=== PATIENT | female | born 1965 | race Caucasian/White ===

== ENCOUNTER 2019-12-11 16:33 | Observation (INO) | payer BC ==
--- NOTE | 2019-12-11 17:42 | ER ---
Nurse's Notes [facility] Name: Sharon Durant Age: 54 yrs Sex: Female : 1965 Arrival Date: 12/11/2019 Time: 16:40 Bed 2 Private MD: Eb Novak H Diagnosis: Palpitations;Essential (primary) hypertension;Chest pain, unspecified;Hypokalemia Presentation: 12/10 16:42 Chief complaint: Patient states: heart fluttering started at 1500, lightheaded, chest sv pressure, heartburn. 16:42 Method Of Arrival: Ambulatory sv 16:45 Coronavirus screen: Proceed with normal triage. Patient denies a cough. Patient denies sv shortness of breath or difficulty breathing. Patient denies measured and/or subjective temperature greater than 100.4F prior to today's visit. Patient denies travel on a cruise ship or to a country the [facility] currently lists as an affected area. Patient denies contact with known and/or suspected case of COVID-19. Ebola Screen: No symptoms or risks identified at this time. Initial Sepsis Screen: Does the patient meet any 2 criteria? HR > 90 bpm. No. Patient's initial sepsis screen is negative. Does the patient have a suspected source of infection? No. Patient's initial sepsis screen is negative. Risk Assessment: Do you want to hurt yourself or someone else? Patient reports no desire to harm self or others. Onset of symptoms was December 11, 2019. 16:45 Acuity: GABBY 2 sv Triage Assessment: 17:00 General: Appears in no apparent distress. comfortable, obese, Behavior is cooperative, bp appropriate for age, anxious. Pain: Complains of pain in mid-sternal area. EENT: No deficits noted. Neuro: No deficits noted. Cardiovascular: Rhythm is sinus rhythm. Respiratory: No deficits noted. GI: No signs and/or symptoms were reported involving the gastrointestinal system. : No signs and/or symptoms were reported regarding the genitourinary system. Derm: No deficits noted. Musculoskeletal: No deficits noted. PER DIEM RN: 17:01 LMP N/A - Hysterectomy ca1 Historical: - Allergies: 16:43 No Known Allergies; sv - PMHx: 16:43 Hypertension; High Cholesterol; sv 16:44 Atrial Fib; sv - PSHx: 16:43 Hysterectomy; Ear cyst removal; ; sv - Immunization history:: Adult Immunizations up to date. - Social history:: Smoking status: Patient denies any tobacco usage or history of. - Family history:: not pertinent. Screenin:58 Abuse screen: Denies threats or abuse. Denies injuries from another. Nutritional ca1 screening: No deficits noted. Tuberculosis screening: No symptoms or risk factors identified. Fall Risk IV access (20 points). Assessment: 16:58 General: Appears in no apparent distress. comfortable, Behavior is calm, cooperative, ca1 appropriate for age. Pain: Complains of pain in mid-sternal area Pain does not radiate. Pain currently is 0 out of 10 on a pain scale. Quality of pain is described as heavy, pressure, Pain began 2 hours ago. Is intermittent, Also complains of nausea, shortness of breath, lightheaded. Neuro: Level of Consciousness is awake, alert, obeys commands, Oriented to person, place, time, situation, Appropriate for age. Cardiovascular: Heart tones S1 S2 present Capillary refill < 3 seconds Patient's skin is warm and dry. Rhythm is sinus rhythm. Respiratory: Airway is patent Respiratory effort is even, unlabored, Respiratory pattern is regular, symmetrical, Breath sounds are clear bilaterally. GI: Abdomen is round non-distended, Bowel sounds present X 4 quads. Abd is soft and non tender X 4 quads. : No signs and/or symptoms were reported regarding the genitourinary system. EENT: No signs and/or symptoms were reported regarding the EENT system. Derm: Skin is intact, is healthy with good turgor, Skin is pink, warm \T\ dry. Musculoskeletal: Circulation, motion, and sensation intact. Capillary refill < 3 seconds. 17:55 Reassessment: Patient appears in no apparent distress at this time. Patient and/or ca1 family updated on plan of care and expected duration. Pain level reassessed. Patient is alert, oriented x 3, equal unlabored respirations, skin warm/dry/pink. 19:19 General: Appears in no apparent distress. Behavior is calm, cooperative, appropriate ea for age. Pain: Denies pain. Neuro: Level of Consciousness is awake, alert, obeys commands, Oriented to person, place, time, situation. Respiratory: Airway is patent Respiratory effort is even, unlabored, Respiratory pattern is regular, symmetrical. Derm: Skin is pink, warm \T\ dry. 20:55 Reassessment: Patient and/or family updated on plan of care and expected duration. Pain ea level reassessed. Patient is alert, oriented x 3, equal unlabored respirations, skin warm/dry/pink. 21:11 Reassessment: Patient and/or family updated on plan of care and expected duration. Pain ea level reassessed. Patient is alert, oriented x 3, equal unlabored respirations, skin warm/dry/pink. Report called to Adwoa MEYER. Vital Signs: 16:45 BP 115 / 91; Pulse 101; Resp 18; Temp 98.4; Pulse Ox 97% ; Weight 108.86 kg; Height 5 sv ft. 7 in. (170.18 cm); 17:00 BP 140 / 94; Pulse 77; Resp 16 S; Pulse Ox 97% on R/A; ca1 17:45 BP 123 / 81; Pulse 73; Resp 16 S; Pulse Ox 97% on R/A; ca1 18:35 BP 116 / 86; Pulse 65; Resp 17 S; Pulse Ox 97% on R/A; ca1 20:00 BP 123 / 76; Pulse 69; Resp 18; Pulse Ox 97% on R/A; ea 21:12 BP 146 / 85; Pulse 64; Resp 18; Pulse Ox 99% on R/A; ea 16:45 Body Mass Index 37.59 (108.86 kg, 170.18 cm) sv ED Course: 16:40 Patient arrived in ED. am2 16:41 Eb Novak MD is Private Physician. am2 16:42 Arm band placed on. sv 16:46 Triage completed. sv 16:49 Erica Roca, MITCH is Primary Nurse. ca1 16:54 Chriss Villanueva MD is Attending Physician. imani 16:58 Patient has correct armband on for positive identification. Placed in gown. Bed in low ca1 position. Call light in reach. Side rails up X 1. library monitor on. Pulse ox on. NIBP on. Warm blanket given. 16:58 Patient maintains SpO2 saturation greater than 95% on room air. ca1 17:11 No provider procedures requiring assistance completed. Initial lab(s) drawn, by nj, ca1 sent to lab. Inserted saline lock: 20 gauge in right antecubital area, using aseptic technique. Blood collected. 17:36 XRAY Chest (1 view) In Process Unspecified. EDMS 17:39 Abner Panchal DO is Hospitalizing Provider. imani 19:35 Patient admitted, IV remains in place. ea Administered Medications: 17:40 Drug: Pepcid 20 mg Route: IVP; Site: right antecubital; bp 17:45 Follow up: Response: No adverse reaction bp 17:40 Drug: Lovenox 100 mg Route: Sub-Q; Site: right lower abdomen; bp 17:45 Follow up: Response: No adverse reaction bp 19:48 Drug: Potassium Effervescent Tablet 25 mEq Route: PO; ea 21:13 Follow up: Response: No adverse reaction ea Outcome: 17:39 Decision to Hospitalize by Provider. imani 19:34 Instructed on the need for admit, Demonstrated understanding of instructions. ea 21:11 Admitted to Med/surg accompanied by tech, room 219, with chart, Report called to leonardo Orona RN 21:11 Condition: stable 21:13 Patient left the ED. ea Signatures: Dispatcher [employer] EDCassia Roa RN Chriss Corona MD MD cha Moreno, Amanda am2 Katerin Gillis RN RN Rian Perdomo RN RN bp Erica Roca RN RN ca1 Corrections: (The following items were deleted from the chart) 16:46 16:45 Acuity: GABBY 3 sv sv
--- NOTE | 2019-12-11 17:42 | EDPHYS ---
Physician Documentation [facility] Name: Sharon Durant Age: 54 yrs Sex: Female : 1965 Arrival Date: 12/11/2019 Time: 16:40 Bed 2 Private MD: Eb Novak H ED Physician Chriss Villanueva HPI: 12/10 17:35 This 54 yrs old Female presents to ER via Ambulatory with complaints of imani Palpitations, Chest Pressure. 17:35 The patient presents with a history of irregular heart beat, heart skipping beats. imani Context: The symptoms occur at rest. Onset: The symptoms/episode began/occurred just prior to arrival, today. 17:35 The patient or guardian reports chest pain that is located primarily in the substernal imani area. Onset: just prior to arrival, today. Modifying factors: The symptoms are aggravated by nothing. The symptoms are alleviated by nothing. The pain does not radiate. Associated signs and symptoms: Pertinent positives: chest pain, SOB. The chest pain is described as a pressure. 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 - Social history:: Smoking status: Patient denies any tobacco usage or history of. - Family history:: not pertinent. ROS: 17:35 Constitutional: Negative for fever, chills, and weight loss, Eyes: Negative for injury, imani pain, redness, and discharge, ENT: Negative for injury, pain, and discharge, Neck: Negative for injury, pain, and swelling, Respiratory: Negative for shortness of breath, cough, wheezing, and pleuritic chest pain, Abdomen/GI: Negative for abdominal pain, nausea, vomiting, diarrhea, and constipation, Back: Negative for injury and pain, : Negative for injury, bleeding, discharge, and swelling, MS/Extremity: Negative for injury and deformity, Skin: Negative for injury, rash, and discoloration, Neuro: Negative for headache, weakness, numbness, tingling, and seizure, Psych: Negative for depression, anxiety, suicide ideation, homicidal ideation, and hallucinations, Allergy/Immunology: Negative for hives, rash, and allergies, Endocrine: Negative for neck swelling, polydipsia, polyuria, polyphagia, and marked weight changes, Hematologic/Lymphatic: Negative for swollen nodes, abnormal bleeding, and unusual bruising. 17:35 Cardiovascular: Positive for chest pain. Exam: 17:35 Constitutional: This is a well developed, well nourished patient who is awake, alert, imani and in no acute distress. Head/Face: Normocephalic, atraumatic. Eyes: Pupils equal round and reactive to light, extra-ocular motions intact. Lids and lashes normal. Conjunctiva and sclera are non-icteric and not injected. Cornea within normal limits. Periorbital areas with no swelling, redness, or edema. ENT: Nares patent. No nasal discharge, no septal abnormalities noted. Tympanic membranes are normal and external auditory canals are clear. Oropharynx with no redness, swelling, or masses, exudates, or evidence of obstruction, uvula midline. Mucous membranes moist. Neck: Trachea midline, no thyromegaly or masses palpated, and no cervical lymphadenopathy. Supple, full range of motion without nuchal rigidity, or vertebral point tenderness. No Meningismus. Chest/axilla: Normal chest wall appearance and motion. Nontender with no deformity. No lesions are appreciated. Cardiovascular: Regular rate and rhythm with a normal S1 and S2. No gallops, murmurs, or rubs. Normal PMI, no JVD. No pulse deficits. Respiratory: Lungs have equal breath sounds bilaterally, clear to auscultation and percussion. No rales, rhonchi or wheezes noted. No increased work of breathing, no retractions or nasal flaring. Abdomen/GI: Soft, non-tender, with normal bowel sounds. No distension or tympany. No guarding or rebound. No evidence of tenderness throughout. Back: No spinal tenderness. No costovertebral tenderness. Full range of motion. Skin: Warm, dry with normal turgor. Normal color with no rashes, no lesions, and no evidence of cellulitis. MS/ Extremity: Pulses equal, no cyanosis. Neurovascular intact. Full, normal range of motion. Neuro: Awake and alert, GCS 15, oriented to person, place, time, and situation. Cranial nerves II-XII grossly intact. Motor strength 5/5 in all extremities. Sensory grossly intact. Cerebellar exam normal. Normal gait. Psych: Awake, alert, with orientation to person, place and time. Behavior, mood, and affect are within normal limits. 17:35 Musculoskeletal/extremity: DVT Exam: No signs of deep vein thrombosis. no pain, no swelling, no tenderness, negative Homans' sign noted on exam, no appreciated bluish discoloration, no erythema, no increased warmth. Vital Signs: 16:45 BP 115 / 91; Pulse 101; Resp 18; Temp 98.4; Pulse Ox 97% ; Weight 108.86 kg; Height 5 sv ft. 7 in. (170.18 cm); 17:00 BP 140 / 94; Pulse 77; Resp 16 S; Pulse Ox 97% on R/A; ca1 17:45 BP 123 / 81; Pulse 73; Resp 16 S; Pulse Ox 97% on R/A; ca1 18:35 BP 116 / 86; Pulse 65; Resp 17 S; Pulse Ox 97% on R/A; ca1 20:00 BP 123 / 76; Pulse 69; Resp 18; Pulse Ox 97% on R/A; ea 21:12 BP 146 / 85; Pulse 64; Resp 18; Pulse Ox 99% on R/A; ea 16:45 Body Mass Index 37.59 (108.86 kg, 170.18 cm) sv MDM: 16:54 Patient medically screened. imani 17:40 JOSE Risk Score: 1 - ASA use in past 7 days. HEART Score: History: Slightly Suspicious imani (0), ECG: Normal (0), Age: > 45 and < 65 years (1), Risk Factors: > or = 3 Risk factors for atherosclerotic disease (2), [Hypercholesterolemia] [Hypertension] [+ Family HX] [Obesity] Troponin: < or = 1 x Normal Limit (0). Data reviewed: vital signs, nurses notes, lab test result(s), EKG, radiologic studies, plain films. 18:02 Differential diagnosis: abnormal EKG, anxiety, coronary artery disease cholecystitis, imani Cholelithiasis costochondritis, arrythmia, dehydration, esophagitis, gastroesophageal reflux disease (GERD), hiatal hernia, pancreatitis, pleurisy, stable angina. The patient was not given aspirin in the Emergency Department. Patient reports taking aspirin within the past 24 hours. 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 18:03 The patient's pulmonary embolism risk score was calculated as follows: Total Score: 0-2 imani points. This patient was found to be at low risk for a pulmonary embolism by using the Well's assessment criteria. Counseling: I had a detailed discussion with the patient and/or guardian regarding: the historical points, exam findings, and any diagnostic results supporting the discharge/admit diagnosis, the presence of at least one elevated blood pressure reading (>120/80) during this emergency department visit, lab results, radiology results, the need for further work-up and treatment in the hospital. 12/10 17:11 Order name: Basic Metabolic Panel; Complete Time: 19:38 [facility] 12/10 17:11 Order name: CBC with Diff; Complete Time: 18:11 [facility] 12/10 17:11 Order name: LFT's; Complete Time: 19:38 [facility] 12/10 17:11 Order name: Magnesium; Complete Time: 19:38 [facility] 12/10 17:11 Order name: NT PRO-BNP; Complete Time: 19:38 [facility] 12/10 17:11 Order name: PT-INR; Complete Time: 18:11 [facility] 12/10 17:11 Order name: Troponin (emerg Dept Use Only); Complete Time: 19:38 [facility] 12/10 17:35 Order name: Lipase; Complete Time: 18:11 [facility] 12/10 17:38 Order name: TSH; Complete Time: 18:17 [facility] 12/10 19:56 Order name: Lipid Profile [facility] 12/10 19:56 Order name: Lipid Profile [facility] 12/10 19:56 Order name: Troponin I [facility] 12/10 19:56 Order name: Troponin I [facility] 12/10 19:56 Order name: Troponin I [facility] 12/10 17:11 Order name: XRAY Chest (1 view); Complete Time: 18:11 [facility] 12/10 17:11 Order name: EKG; Complete Time: 17:12 [facility] 12/10 17:11 Order name: Cardiac monitoring; Complete Time: 17:11 [facility] 12/10 17:11 Order name: EKG - Nurse/Tech; Complete Time: 17:11 [facility] 12/10 17:11 Order name: IV Saline Lock; Complete Time: 17:11 [facility] 12/10 17:11 Order name: Labs collected and sent; Complete Time: 17:11 ca1 12/10 17:11 Order name: O2 Per Protocol; Complete Time: 17:11 ca1 12/10 17:11 Order name: O2 Sat Monitoring; Complete Time: 17:11 ca1 12/10 19:56 Order name: Heart Healthy EDMS 12/10 19:56 Order name: Echo with Doppler EDMS Administered Medications: 17:40 Drug: Pepcid 20 mg Route: IVP; Site: right antecubital; bp 17:45 Follow up: Response: No adverse reaction bp 17:40 Drug: Lovenox 100 mg Route: Sub-Q; Site: right lower abdomen; bp 17:45 Follow up: Response: No adverse reaction bp 19:48 Drug: Potassium Effervescent Tablet 25 mEq Route: PO; ea 21:13 Follow up: Response: No adverse reaction ea Disposition: 12/11/19 17:39 Hospitalization ordered by Abner Panchal for Observation. Preliminary diagnosis are Palpitations, Essential (primary) hypertension, Chest pain, unspecified, Hypokalemia. - Bed requested for Telemetry/MedSurg (observation). - Status is Observation. ea - Condition is Stable. - Problem is new. - Symptoms have improved. Signatures: Dispatcher [employer] EDMS Cassia Douglas RN Fatoumata Pepe RN Chriss Cao MD MD cha Attema, Lee, DELI WORKER-C DELI WORKER-Cla1 Katerin Gillis RN RN ea Peltier, Brian RN Loree Fitch eb Erica Roca RN RN ca1 Corrections: (The following items were deleted from the chart) 18:18 17:39 Hospitalization Ordered by Abner Panchal DO for Observation. Preliminary eb diagnosis is Palpitations; Essential (primary) hypertension; Chest pain, unspecified. Bed requested for Telemetry/MedSurg (observation). Status is Observation. Condition is Stable. Problem is new. Symptoms have improved. imani 19:39 18:18 12/11/2019 17:39 Hospitalization Ordered by Abner Panchal DO for Observation. imani Preliminary diagnosis is Palpitations; Essential (primary) hypertension; Chest pain, unspecified. Bed requested for Telemetry/MedSurg (observation). Status is Observation. Condition is Stable. Problem is new. Symptoms have improved. eb 20:04 19:39 12/11/2019 17:39 Hospitalization Ordered by Abner Panchal DO for Observation. mw Preliminary diagnosis is Palpitations; Essential (primary) hypertension; Chest pain, unspecified; Hypokalemia. Bed requested for Telemetry/MedSurg (observation). Status is Observation. Condition is Stable. Problem is new. Symptoms have improved. imani 21:13 20:04 12/11/2019 17:39 Hospitalization Ordered by Abner Panchal DO for Observation. ea Preliminary diagnosis is Palpitations; Essential (primary) hypertension; Chest pain, unspecified; Hypokalemia. Bed requested for Telemetry/MedSurg (observation). Status is Observation. Condition is Stable. Problem is new. Symptoms have improved. mw
[2019-12-11] MEDS ORDERED: FAMOTIDINE 20 MG/2 ML VIAL IV ONE (17:45)
[2019-12-11] MEDS ORDERED: ENOXAPARIN 100 MG/ML SYR SQ ONE (17:45)
--- NOTE | 2019-12-11 17:48 | RAD REPORT ---
EXAM DESCRIPTION: [place] Single View12/11/2019 5:31 pm CLINICAL HISTORY: Chest pain COMPARISON: 2012 FINDINGS: The lungs appear clear of acute infiltrate. The heart is normal size IMPRESSION: No acute abnormalities displayed
[2019-12-11 17:58] LABS: Absolute Lymphocytes (CBC) 1.7 K/uL (0.7-4.9); Basophils % 0.7 % (0-1.3); Hematocrit 43.4 % (36.0-45.0); Lymphocytes % 28.5 % (15.3-44.8); MPV 9.2 fL (7.6-11.3)
[2019-12-11 17:59] LABS: Protime INR 0.96
[2019-12-11 18:18] LABS: ALT/SGPT 33 U/L (12-78); AST/SGOT 20 U/L (15-37); Alkaline Phosphatase 75 U/L (45-117); BUN Blood Urea Nitrogen 10 mg/dL (7-18); Bicarbonate 27 mmol/L (21-32); Bilirubin Direct < 0.1 mg/dL (0-0.2); Bilirubin Total 0.3 mg/dL (0.2-1.0); Glucose Level 142 mg/dL (74-106); Magnesium 2.1 mg/dL (1.8-2.4); NT PRO-BNP 180 pg/mL (<125); Potassium 3.4 mmol/L (3.5-5.1); Protein, Total 7.6 g/dL (6.4-8.2); Sodium Level 140 mmol/L (136-145); Troponin (Emerg Dept Use Only) < 0.02 ng/mL (0.0-0.045)
[2019-12-11] MEDS ORDERED: POTASSIUM 25 MEQ EFFERV TAB ONE (19:49)
[2019-12-11] MEDS ORDERED: ALPRAZOLAM 0.25 MG TABLET PO PRN (19:53)
[2019-12-11] MEDS ORDERED: ACETAMINOPHEN 500 MG TAB PO PRN (19:53)
[2019-12-11] MEDS ORDERED: MORPHINE 4 MG/ML SYR IV PRN (19:53)
[2019-12-11] MEDS ORDERED: METOPROLOL TAR 50 MG TAB PO SCH (21:00)
[2019-12-11 22:43] VITALS: BMI 38.7
[2019-12-12 06:32] VITALS: BP 116/71; TEMP 97.4
--- NOTE | 2019-12-12 08:24 | P.HP ---
Certification for Inpatient Patient admitted to: Observation With expected LOS: <2 Midnights Patient will require the following post-hospital care: None Practitioner: I am a practitioner with admitting privileges, knowledge of patient current condition, hospital course, and medical plan of care. Services: Services provided to patient in accordance with Admission requirements found in Title 42 Section 412.3 of the Code of Federal Regulations Patient History Date of Service: 12/11/19 Reason for admission: Chest pain rule out acute coronary syndrome History of Present Illness: Patient is a 54-year-old female who came to the hospital with chest pain. Patient history of atrial fibrillation. Patient's pain started yesterday. Patient has been following up with Cardiology in [place], with Dr. Timo Fox. Patient had workup done about a year and a half ago including echocardiogram and stress test. At that time patient stress test revealed no abnormalities. Patient will be followed up with Cardiology if workup is negative. At this time will do troponins and EKG. If these come back negative then patient can continue with outpatient follow-up. Allergies No Known Allergies Allergy (Verified 12/11/19 22:19) Home Medications: Aspirin 1 tab PO DAILY 12/11/19 Metoprolol Tartrate 1 tab PO SEECOM 12/11/19 Metoprolol Tartrate [Lopressor*] 1 tab PO BEDTIME 12/11/19 Simvastatin 20 mg PO BEDTIME 12/11/19 hydroCHLOROthiazide [Hydrochlorothiazide] 1 tab PO DAILY 12/11/19 - Past Medical/Surgical History Has patient received pneumonia vaccine in the past: No Diabetic: No -: HTN -: Osteoarthritis/Bursitis of the Hip and Shoulder -: Obesity -: Migraines -: Partial Hysterectomy -: Cyst to the auricular area removed. 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 - Family History Father Family History: Reviewed- Non-Contributory - Social History Smoking Status: Former smoker Alcohol use: Yes CD- Drugs: No Caffeine use: Yes Place of Residence: Home Review of Systems 10-point ROS is otherwise unremarkable Physical Examination - Vital Signs Temperature: 97.4 F Blood Pressure: 116/71 Pulse: 60 Respirations: 14 Pulse Ox (%): 97 - Physical Exam General: Alert, In no apparent distress, Oriented x3 HEENT: Atraumatic, PERRLA, Mucous membr. moist/pink, EOMI, Sclerae nonicteric Neck: Supple, 2+ carotid pulse no bruit, No LAD, Without JVD or thyroid abnormality Respiratory: Clear to auscultation bilaterally, Normal air movement Cardiovascular: Regular rate/rhythm, Normal S1 S2, No murmurs Gastrointestinal: Normal bowel sounds, Soft and benign, Non-distended, No tenderness Musculoskeletal: No clubbing, No swelling, No tenderness Integumentary: No rashes Neurological: Normal gait, Normal speech, Normal strength at 5/5 x4 extr, Normal tone, Sensation intact, Cranial nerves 3-12 intact, Normal affect Lymphatics: No axilla or inguinal lymphadenopathy - Studies Laboratory Data (last 24 hrs) 12/11/19 17:15: Lipase 73 12/11/19 17:15: PT 11.3, INR 0.96 12/11/19 17:15: WBC 6.0, Hgb 14.3, Hct 43.4, Plt Count 304 12/11/19 17:15: Sodium 140, Potassium 3.4 L, BUN 10, Creatinine 0.87, Glucose 142 H, Magnesium 2.1, Total Bilirubin 0.3, AST 20, ALT 33, Alkaline Phosphatase 75 Assessment & Plan - Problems (Diagnosis) (1) Chest pain, rule out acute myocardial infarction Current Visit: Yes Status: Acute (2) Atrial fibrillation Current Visit: Yes Status: Acute (3) History of hypertension Current Visit: Yes Status: Acute - Plan 1. Serial troponins and EKG 2. Cardiology consultation 3. Echocardiogram and stress test as outpatient if inpatient workup is negative 4. Anti-platelet therapy, anti coagulation, beta-josias, statin, and O2 as needed 5. IV morphine for pain 6. Nitro p.r.n. Discharge Plan: Home Plan to discharge in: 24 Hours - Advance Directives Does patient have a Living Will: No Does patient have a Durable POA for Healthcare: No - Code Status/Comfort Care Code Status Assessed: Yes Code Status: Full Code Critical Care: No Time Spent Managing PTS Care (In Minutes): 45
--- NOTE | 2019-12-12 08:25 | P.DS ---
Discharge Date: 12/12/19 Disposition: ROUTINE DISCHARGE Discharge Condition: GOOD Reason for Admission: Chest pain rule out acute coronary syndrome - Problems (1) Chest pain, rule out acute myocardial infarction Current Visit: Yes Status: Acute (2) Atrial fibrillation Current Visit: Yes Status: Acute (3) History of hypertension Current Visit: Yes Status: Acute Brief History of Present Illness: Patient is a 54-year-old female who came to the hospital with chest pain. Patient history of atrial fibrillation. Patient's pain started yesterday. Patient has been following up with Cardiology in [place], with Dr. Timo Fox. Patient had workup done about a year and a half ago including echocardiogram and stress test. At that time patient stress test revealed no abnormalities. Patient will be followed up with Cardiology if workup is negative. At this time will do troponins and EKG. If these come back negative then patient can continue with outpatient follow-up. Hospital Course: Patient is a well during hospital stay. Workup was negative. Chest pain has completely resolved since yesterday evening. At this time patient is stable for discharge. She was follow with her bell tier and [place]. She will see him in 1 week. Return to the ER if chest pain worsens. Otherwise outpatient follow with Cardiology in 1 week. Vital Signs/Physical Exam: Temp Pulse Resp BP Pulse Ox 97.4 F 60 14 116/71 97 12/12/19 08:23 12/12/19 08:23 12/12/19 08:23 12/12/19 08:23 12/12/19 08:23 General: Alert, In no apparent distress, Oriented x3 Laboratory Data at Discharge: WBC 6.0 K/uL (4.3-10.9) 12/11/19 17:15 Hgb 14.3 g/dL (12.0-15.0) 12/11/19 17:15 Hct 43.4 % (36.0-45.0) 12/11/19 17:15 Plt Count 304 K/uL (152-406) 12/11/19 17:15 PT 11.3 SECONDS (9.5-12.5) 12/11/19 17:15 INR 0.96 12/11/19 17:15 Sodium 140 mmol/L (136-145) 12/11/19 17:15 Potassium 3.4 mmol/L (3.5-5.1) L 12/11/19 17:15 BUN 10 mg/dL (7-18) 12/11/19 17:15 Creatinine 0.87 mg/dL (0.55-1.3) 12/11/19 17:15 Glucose 142 mg/dL (74-106) H 12/11/19 17:15 Magnesium 2.1 mg/dL (1.8-2.4) 12/11/19 17:15 Total Bilirubin 0.3 mg/dL (0.2-1.0) 12/11/19 17:15 AST 20 U/L (15-37) 12/11/19 17:15 ALT 33 U/L (12-78) 12/11/19 17:15 Alkaline Phosphatase 75 U/L (45-117) 12/11/19 17:15 Troponin I < 0.02 ng/mL (0.0-0.045) 12/12/19 03:37 Triglycerides 106 mg/dL (<150) 12/12/19 03:37 Cholesterol 140 mg/dL (<200) 12/12/19 03:37 HDL Cholesterol 53 mg/dL (40-60) 12/12/19 03:37 Cholesterol/HDL Ratio 2.64 12/12/19 03:37 Lipase 73 U/L (73-393) 12/11/19 17:15 Home Medications: Aspirin 1 tab PO DAILY 12/11/19 Metoprolol Tartrate 1 tab PO SEECOM 12/11/19 Metoprolol Tartrate [Lopressor*] 1 tab PO BEDTIME 12/11/19 Simvastatin 20 mg PO BEDTIME 12/11/19 hydroCHLOROthiazide [Hydrochlorothiazide] 1 tab PO DAILY 12/11/19 Patient Discharge Instructions: OK TO DC IV AND DC HOME. FOLLOW-UP WITH PRIMARY CARE PROVIDER IN 1-2 WEEKS. FOLLOW-UP WITH CARDIOLOGY, DR. FOX, IN 1-2 WEEKS. RETURN TO THE ER IF SYMPTOMS WORSEN. CALL or TEXT DR. HOUSTON AT [phone] IF ANY QUESTIONS REGARDING HOSPITAL STAY. PLEASE CALL THE FLOOR AT [phone] IF ANY MEDICATION OR NURSING QUESTIONS. Diet: AHA Activity: NO STRENUOUS EXERCISING UNTIL SEEN BY CARDIOLOGY Time spent managing pt's care (in minutes): 25
[2019-12-12] MEDS ORDERED: hydroCHLOROthiazide 12.5 MG CAP PO SCH (09:00)
[2019-12-12] MEDS ORDERED: ASPIRIN EC 81 MG TAB PO SCH (09:00)
[2019-12-12] MEDS ORDERED: ENOXAPARIN 40 MG/0.4 ML SQ SCH (09:00)
[2019-12-12] MEDS ORDERED: ASPIRIN 81 MG CHEWABLE TABLET PO SCH (09:00)
[2019-12-12] MEDS ORDERED: HOME MED 1 EA UNK (Hydrochlorothiazide [Hydrochlorothiazide] 1 TAB) PO SCH (09:00)
[2019-12-12 11:03] VITALS: O2SAT 95
--- NOTE | 2019-12-12 12:18 | EKG ---
Test Date: 2019-12-11 Test Time: 16:58:45 Pesticide Chemist: ANISH MEASUREMENT RESULTS: Intervals: Rate: 73 DE: 172 QRSD: 84 QT: 384 QTc: 423 [place]: P: 54 DE: 172 QRS: 21 T: 34 INTERPRETIVE STATEMENTS: Normal sinus rhythm Possible Left atrial enlargement Cannot rule out Anterior infarct, age undetermined Abnormal ECG Compared to ECG 08/05/2013 14:22:59 Myocardial infarct finding now present Electronically Signed On 12-12-19 12:17:46 CDT by Akira Rodriguez
[2019-12-12] MEDS ORDERED: ATORVASTATIN 10 MG TAB PO SCH (21:00)
[2019-12-12] MEDS ORDERED: HOME MED 1 EA UNK (Simvastatin [Simvastatin] 20 MG) PO SCH (21:00)
[2019-12-12] MEDS ORDERED: METOPROLOL TAR 50 MG TAB PO SCH (21:00)
[2019-12-13] MEDS ORDERED: METOPROLOL TAR 25 MG TAB PO SCH (06:00)
== END 2019-12-12 09:15 | disposition home or self-care (01) ==
LOC: ER 16:33 → ERHOLD 19:53 → 2ND 21:10
PROVIDERS: ADMIT Hospitalist; ATTEND Hospitalist
DX: R07.9 Chest pain, unspecified (principal); I48.91 Unspecified atrial fibrillation; I10 Essential (primary) hypertension; E66.9 Obesity, unspecified; Z68.38 Body mass index [BMI] 38.0-38.9, adult; G43.909 Migraine, unspecified, not intractable, without status migrainosus; Z87.891 Personal history of nicotine dependence
CPT/HCPCS: 93005; 85025; 80048; 36415; 83735; 85610; 80061; 80076; 84443; 84484 ×3; 83690; 83880; 71045; 96372; 96374; 99285; J1650; G0378 ×3

== ENCOUNTER 2023-08-17 10:20 | Inpatient (IN) | payer BC ==
[2023-08-17] MEDS ORDERED: METOPROLOL TAR 50 MG TAB ONE (10:48)
[2023-08-17] MEDS ORDERED: DIGOXIN 0.25 MG/ML AMP ONE (10:48)
[2023-08-17] MEDS ORDERED: METOPROLOL TARTRATE 5 MG/5 ML INJ IV ONE ×2 (10:48→12:26)
[2023-08-17] MEDS ORDERED: NA CHLORIDE 0.9% 1,000 ML ONE (10:49)
[2023-08-17] MEDS ORDERED: NA CHLORIDE 0.9% 500 ML ONE (10:49)
[2023-08-17] MEDS ORDERED: MAGNESIUM SULFATE 1 gm IVPB 1 GM/100 ML BAG IV ONE (10:49)
[2023-08-17 11:05] LABS: Absolute Lymphocytes (CBC) 1.7 K/uL (0.7-4.9); Hematocrit 41.1 % (36.0-45.0); MCV 87.9 fL (80-100); MPV 7.9 fL (7.6-11.3); Platelets 294 thou/uL (152-406); RBC Red Blood Cell Count 4.68 M/uL (3.86-4.86)
[2023-08-17 11:13] LABS: Protime INR 1.12
--- NOTE | 2023-08-17 11:20 | RAD REPORT ---
EXAM DESCRIPTION: US - Extrem Venous W Compress Harsh - 08/17/2023 11:15 am CLINICAL HISTORY: PAIN Bilateral leg edema and swelling. COMPARISON: <Comparisons> TECHNIQUE: Real-time sonographic interrogation of the left and right lower extremity deep venous sys tems was performed. FINDINGS: Normal compressibility, flow augmentation, phasic flow and spontaneous flow is identified in both the left and right lower extremity deep venous systems. IMPRESSION: No sonographic evidence of left or right lower extremity deep venous thrombosis.
[2023-08-17] MEDS ORDERED: APIXABAN 5 MG TABLET ONE ×2 (11:24→11:51)
[2023-08-17] MEDS ORDERED: FAMOTIDINE 20 MG/2 ML VIAL IV ONE (11:24)
--- NOTE | 2023-08-17 11:27 | RAD REPORT ---
EXAM DESCRIPTION: RAD - Chest Single View - 08/17/2023 11:18 am CLINICAL HISTORY: COUGH Chest pain. COMPARISON: <Comparisons> FINDINGS: Portable technique limits examination quality. The lungs are grossly clear. The heart is normal in size. No displaced fractures. IMPRESSION: No acute intrathoracic process suspected.
[2023-08-17 11:28] LABS: Albumin 3.8 g/dL (3.4-5.0); Bilirubin Direct 0.2 mg/dL (0-0.2); Bilirubin Indirect, Calculated 0.3 mg/dL (0.2-0.8); Bilirubin Total 0.5 mg/dL (0.2-1.0); Magnesium 2.1 mg/dL (1.6-2.4); Potassium 3.7 mEq/L (3.5-5.1); Thyroid Stimulating Hormone 1.31 uIU/mL (0.358-3.740)
--- NOTE | 2023-08-17 11:31 | EDPHYS ---
Physician Documentation [facility] Name: Sharon Durant Age: 58 yrs Sex: Female : 1965 Arrival Date: 08/17/2023 Time: 10:20 Bed 8 Private MD: ED Physician Chriss Villanueva HPI: 08/17 11:24 This 58 yrs old Female presents to ER via Ambulatory with complaints of imani Possible afib. 11:24 The patient or guardian reports chest pain that is located primarily in the substernal imani area. Onset: last night. The patient presents with a history of irregular heart beat. Context: The symptoms occur at rest. Onset: The symptoms/episode began/occurred yesterday. Duration: The patient or guardian reports a single episode, that is still ongoing, and unchanged. Modifying factors: The symptoms are aggravated by nothing. The symptoms are alleviated by nothing. The pain does not radiate. Historical: - Allergies: 10:45 No Known Allergies; hb - Home Meds: 10:45 metoprolol tartrate 25 mg oral tablet 2 times per day [Active]; lisinopril 20 mg Oral hb tablet once [Active]; - PMHx: 10:45 Atrial Fib; High Cholesterol; Hypertension; hb - Family history:: not pertinent. ROS: 11:24 Constitutional: Negative for fever, chills, and weight loss, Eyes: Negative for injury, imani pain, redness, and discharge, ENT: Negative for injury, pain, and discharge, Neck: Negative for injury, pain, and swelling, Respiratory: Negative for shortness of breath, cough, wheezing, and pleuritic chest pain, Abdomen/GI: Negative for abdominal pain, nausea, vomiting, diarrhea, and constipation, Back: Negative for injury and pain, : Negative for injury, bleeding, discharge, and swelling, MS/Extremity: Negative for injury and deformity, Skin: Negative for injury, rash, and discoloration, Neuro: Negative for headache, weakness, numbness, tingling, and seizure, Psych: Negative for depression, anxiety, suicide ideation, homicidal ideation, and hallucinations, Allergy/Immunology: Negative for hives, rash, and allergies, Endocrine: Negative for neck swelling, polydipsia, polyuria, polyphagia, and marked weight changes, Hematologic/Lymphatic: Negative for swollen nodes, abnormal bleeding, and unusual bruising, 11:24 Cardiovascular: Positive for palpitations, Exam: 11:24 Constitutional: This is a well developed, well nourished patient who is awake, alert, imani and in no acute distress. Head/Face: Normocephalic, atraumatic. Eyes: Pupils equal round and reactive to light, extra-ocular motions intact. Lids and lashes normal. Conjunctiva and sclera are non-icteric and not injected. Cornea within normal limits. Periorbital areas with no swelling, redness, or edema. ENT: Nares patent. No nasal discharge, no septal abnormalities noted. Tympanic membranes are normal and external auditory canals are clear. Oropharynx with no redness, swelling, or masses, exudates, or evidence of obstruction, uvula midline. Mucous membranes moist. Neck: Trachea midline, no thyromegaly or masses palpated, and no cervical lymphadenopathy. Supple, full range of motion without nuchal rigidity, or vertebral point tenderness. No Meningismus. Chest/axilla: Normal chest wall appearance and motion. Nontender with no deformity. No lesions are appreciated. Respiratory: Lungs have equal breath sounds bilaterally, clear to auscultation and percussion. No rales, rhonchi or wheezes noted. No increased work of breathing, no retractions or nasal flaring. Abdomen/GI: Soft, non-tender, with normal bowel sounds. No distension or tympany. No guarding or rebound. No evidence of tenderness throughout. Back: No spinal tenderness. No costovertebral tenderness. Full range of motion. Female : Normal external genitalia. Skin: Warm, dry with normal turgor. Normal color with no rashes, no lesions, and no evidence of cellulitis. MS/ Extremity: Pulses equal, no cyanosis. Neurovascular intact. Full, normal range of motion. Neuro: Awake and alert, GCS 15, oriented to person, place, time, and situation. Cranial nerves II-XII grossly intact. Motor strength 5/5 in all extremities. Sensory grossly intact. Cerebellar exam normal. Normal gait. Psych: Awake, alert, with orientation to person, place and time. Behavior, mood, and affect are within normal limits. 11:24 ECG was reviewed by the Attending Physician. 11:24 Musculoskeletal/extremity: DVT Exam: No signs of deep vein thrombosis. no pain, no swelling, no tenderness, negative Homans' sign noted on exam, no appreciated bluish discoloration, no erythema, no increased warmth, Vital Signs: 10:43 BP 149 / 111; Pulse 153; Resp 18; Temp 99.1(O); Pulse Ox 100% on R/A; Weight 102.97 kg; hb Height 5 ft. 7 in. ; Pain 2/10; 12:03 BP 119 / 92; Pulse 95; Resp 23; Pulse Ox 100% ; bp 10:43 Body Mass Index 35.55 (102.97 kg, 170.18 cm) hb 10:43 Pain Scale: Adult hb MDM: 10:32 Patient medically screened. imani 11:26 Differential diagnosis: abnormal EKG, anxiety, coronary artery disease arrythmia, imani dehydration, mitral valve prolapse, peptic ulcer disease, pleurisy, pulmonary embolus, stable angina, thoracic aortic disection, unstable angina. HEART Score: History: Slightly Suspicious (0), ECG: Non specific repolarization disturbance / LBTB / PM (1), Age: > 45 and < 65 years (1), Risk Factors: > or = 3 Risk factors for atherosclerotic disease (2), [Hypercholesterolemia] [Hypertension] [+ Family HX] [Obesity] Troponin: < or = 1 x Normal Limit (0). The patient was not given aspirin in the Emergency Department. Patient reports taking aspirin within the past 24 hours. Data reviewed: vital signs, nurses notes, lab test result(s), EKG, radiologic studies, CT scan, plain films. Consideration of Admission/Observation Patient was admitted/placed on observation. Escalation of care including admission/observation considered. I considered the following discharge prescriptions or medication management in the emergency department Medications were administered in the Emergency Department. See MAR. Independent interpretation of the following test(s) in the Emergency Department EKG: See my EKG interpretation above. Test considered but Not performed: Ultrasound no 2 d echo. Historians other than the Patient: Family Member: , well informed. Counseling: I had a detailed discussion with the patient and/or guardian regarding the historical points, exam findings, and any diagnostic results supporting the discharge/admit diagnosis, the presence of at least one elevated blood pressure reading (>120/80) during this emergency department visit, lab results, radiology results, the need for further work-up and treatment in the hospital. 08/17 10:33 Order name: Basic Metabolic Panel; Complete Time: 11:40 08/17 10:33 Order name: CBC with Diff; Complete Time: 11:31 08/17 10:33 Order name: LFT's; Complete Time: 11:40 08/17 10:33 Order name: Magnesium; Complete Time: 11:40 08/17 10:33 Order name: NT PRO-BNP; Complete Time: 11:40 08/17 10:33 Order name: PT-INR; Complete Time: 11:31 08/17 10:33 Order name: Troponin HS; Complete Time: 11:40 08/17 10:33 Order name: Urinalysis w/ reflexes 08/17 10:33 Order name: Lipase; Complete Time: 11:40 08/17 10:33 Order name: TSH; Complete Time: 11:40 08/17 10:33 Order name: XRAY Chest (1 view); Complete Time: 11:31 08/17 10:43 Order name: US Extremity Venous W Compression Harsh; Complete Time: 11:31 08/17 10:33 Order name: EKG; Complete Time: 10:34 08/17 11:57 Order name: EKG; Complete Time: 11:58 08/17 12:04 Order name: CONS Physician Consult EDNV 08/17 10:33 Order name: Cardiac monitoring; Complete Time: 10:47 08/17 10:33 Order name: EKG - Nurse/Tech; Complete Time: 10:47 imani 08/17 10:33 Order name: IV Saline Lock; Complete Time: 10:53 08/17 10:33 Order name: Labs collected and sent; Complete Time: 10:53 [facility] 08/17 10:33 Order name: O2 Per Protocol; Complete Time: 10:47 [facility] 08/17 10:33 Order name: O2 Sat Monitoring; Complete Time: 10:47 [facility] EC:24 Rate is 139 beats/min. Rhythm is irregularly irregular. QRS [place] is Normal. NM interval imani is normal. QRS interval is normal. QT interval is normal. No Q waves. T waves are Normal. No ST changes noted. Clinical impression: Atrial Fibrillation. Interpreted by me. Reviewed by me. Administered Medications: 11:00 Drug: NS 0.9% IV 500 ml IV at bolus once Route: IV; Rate: bolus; Site: right bp antecubital; 11:00 Drug: Magnesium Sulfate IVPB 1 grams IVPB once over 1 hrs Route: IVPB; Infused Over: 1 bp hrs; Site: right antecubital; 11:00 Drug: NS 0.9% IV 1000 ml IV at 125 ml/hr continuous Route: IV; Rate: 125 ml/hr; Site: bp right antecubital; 11:00 Drug: Metoprolol PO 50 mg PO once Route: PO; bp 11:00 Drug: Metoprolol IVP 5 mg IVP once; Hold for SBP <100 or HR <60. Route: IVP; Site: bp right antecubital; 11:00 Drug: Digoxin IVP 0.5 mg IVP once Route: IVP; Site: right antecubital; bp 11:28 Drug: Famotidine IVP 20 mg IVP once; dilute with 10 mL 0.9% NaCl; give over 2 minutes bp Route: IVP; Site: right antecubital; 11:29 Drug: Metoprolol IVP 5 mg IVP once; Hold for SBP <100 or HR <60. Route: IVP; Site: bp right antecubital; 11:29 Drug: Eliquis PO 5 mg PO once Route: PO; bp 11:56 Not Given (Duplicate Order): eliquis5 mg PO once; REPEAT imani 12:02 Drug: Aspirin PO Chewable Tablet 324 mg PO once; 81 mg tablets x 4 Route: PO; bp 12:02 Drug: Sotalol PO 80 mg PO once Route: PO; bp 12:33 Drug: Metoprolol IVP 5 mg IVP once; Hold for SBP <100 or HR <60. Route: IVP; Site: bp right antecubital; Disposition Summary: 08/17/23 11:30 Hospitalization Ordered Notes: Provider: Jeremy Gar cha Condition: Stable imani Problem: new imani Symptoms: have improved imani Bed/Room Type: Standard imani Hospitalization Status: Inpatient Admission(08/17/23 11:57) imani Location: Telemetry/MedSurg (Inpatient)(08/17/23 11:57) imani Room Assignment: [facility](08/17/23 12:11) eb Diagnosis - Chest pain, unspecified imani - Persistent atrial fibrillation - with RVR imani - Non ST elevation SD imani Forms: - Medication Reconciliation Form imani - SBAR form imani - Leadership Thank You Letter imani Signatures: Dispatcher [employer] Chriss Rees MD MD cha Baxter, Heather, RN RN Rian Skaggs RN RN Loree Marie Corrections: (The following items were deleted from the chart) 11:30 Observation imani [facility] 11:30 Telemetry/MedSurg (observation) imani [facility] 11:30 imani imani 12: 11:57 imani pederson
--- NOTE | 2023-08-17 11:31 | ER ---
Nurse's Notes [facility] Name: Sharon Durant Age: 58 yrs Sex: Female : 1965 Arrival Date: 08/17/2023 Time: 10:20 Bed 8 Private MD: Diagnosis: Chest pain, unspecified;Persistent atrial fibrillation-with RVR;Non ST elevation NM Presentation: 08/17 10:43 Chief complaint: Palpitations and chest tightness since last night. Transient right hb groin pain a few days ago. Had an AFib episode approx 5 years ago, cardioverted x 2, takes Metoprolol and Lisinopril. Coronavirus screen: At this time, the client does not indicate any symptoms associated with coronavirus-19. Ebola Screen: No symptoms or risks identified at this time. Initial Sepsis Screen: Does the patient meet any 2 criteria? HR > 90 bpm. No. Patient's initial sepsis screen is negative. Does the patient have a suspected source of infection? No. Patient's initial sepsis screen is negative. Risk Assessment: Do you want to hurt yourself or someone else? Patient reports no desire to harm self or others. Onset of symptoms was August 16, 2023. 10:43 Method Of Arrival: Ambulatory hb 10:43 Acuity: GABBY 2 hb Historical: - Allergies: 10:45 No Known Allergies; hb - Home Meds: 10:45 metoprolol tartrate 25 mg oral tablet 2 times per day [Active]; lisinopril 20 mg Oral hb tablet once [Active]; - PMHx: 10:45 Atrial Fib; High Cholesterol; Hypertension; hb - Family history:: not pertinent. Vital Signs: 10:43 BP 149 / 111; Pulse 153; Resp 18; Temp 99.1(O); Pulse Ox 100% on R/A; Weight 102.97 kg; hb Height 5 ft. 7 in. ; Pain 2/10; 12:03 BP 119 / 92; Pulse 95; Resp 23; Pulse Ox 100% ; bp 10:43 Body Mass Index 35.55 (102.97 kg, 170.18 cm) hb 10:43 Pain Scale: Adult hb ED Course: 10:23 Patient arrived in ED. ts1 10:32 Chriss Villanueva MD is Attending Physician. imani 10:45 Rian Mercado, RN is Primary Nurse. bp 10:45 Triage completed. hb 10:46 Arm band placed on. hb 10:53 TSH Sent. bc6 10:53 Lipase Sent. bc6 10:53 Basic Metabolic Panel Sent. bc6 10:53 CBC with Diff Sent. bc6 10:53 LFT's Sent. bc6 10:53 Magnesium Sent. bc6 10:53 NT PRO-BNP Sent. bc6 10:53 PT-INR Sent. bc6 10:53 Troponin HS Sent. bc6 10:53 Inserted saline lock: 22 gauge in right antecubital area, using aseptic technique. bc6 Blood collected. 11:17 US Extremity Venous W Compression Harsh In Process Unspecified. EDMS 11:20 XRAY Chest (1 view) In Process Unspecified. EDMS 11:29 Jeremy Gar MD is Hospitalizing Provider. imani Administered Medications: 11:00 Drug: NS 0.9% IV 500 ml IV at bolus once Route: IV; Rate: bolus; Site: right bp antecubital; 11:00 Drug: Magnesium Sulfate IVPB 1 grams IVPB once over 1 hrs Route: IVPB; Infused Over: 1 bp hrs; Site: right antecubital; 11:00 Drug: NS 0.9% IV 1000 ml IV at 125 ml/hr continuous Route: IV; Rate: 125 ml/hr; Site: bp right antecubital; 11:00 Drug: Metoprolol PO 50 mg PO once Route: PO; bp 11:00 Drug: Metoprolol IVP 5 mg IVP once; Hold for SBP <100 or HR <60. Route: IVP; Site: bp right antecubital; 11:00 Drug: Digoxin IVP 0.5 mg IVP once Route: IVP; Site: right antecubital; bp 11:28 Drug: Famotidine IVP 20 mg IVP once; dilute with 10 mL 0.9% NaCl; give over 2 minutes bp Route: IVP; Site: right antecubital; 11:29 Drug: Metoprolol IVP 5 mg IVP once; Hold for SBP <100 or HR <60. Route: IVP; Site: bp right antecubital; 11:29 Drug: Eliquis PO 5 mg PO once Route: PO; bp 11:56 Not Given (Duplicate Order): eliquis5 mg PO once; REPEAT imani 12:02 Drug: Aspirin PO Chewable Tablet 324 mg PO once; 81 mg tablets x 4 Route: PO; bp 12:02 Drug: Sotalol PO 80 mg PO once Route: PO; bp 12:33 Drug: Metoprolol IVP 5 mg IVP once; Hold for SBP <100 or HR <60. Route: IVP; Site: bp right antecubital; Outcome: 11:30 Decision to Hospitalize by Provider. imani 14:18 Patient left the ED. bp Signatures: Dispatcher [employer] EDChriss Richardson MD MD cha Baxter, Heather, MITCH RN Rian Mercado RN RN bp Maylin Romo 6 Precious Archer PAS PAS ts1
[2023-08-17 11:40] LABS: Troponin High Sensitivity 1651.2 pg/mL (<58.9)
[2023-08-17] MEDS ORDERED: ASPIRIN 81 MG CHEWABLE TABLET ONE (11:51)
[2023-08-17] MEDS ORDERED: SOTALOL HCL 80 MG TAB ONE (11:54)
--- NOTE | 2023-08-17 12:09 | P.HP ---
Certification for Inpatient Patient admitted to: Inpatient With expected LOS: <2 Midnights Patient will require the following post-hospital care: None Practitioner: I am a practitioner with admitting privileges, knowledge of patient current condition, hospital course, and medical plan of care. Services: Services provided to patient in accordance with Admission requirements found in Title 42 Section 412.3 of the Code of Federal Regulations Patient History Date of Service: 08/17/23 Reason for admission: A-fib RVR History of Present Illness: 58-year-old female with a past medical history of A-fib, hypertension, hypertension hyperlipidemia, depression, seasonal allergies, presents to the emergency room with chest pain and palpitations. She reports chest pain is substernal 3 out of 10 described as chest pressure, nonradiating reports palpitations symptoms worse today. ER evaluation EKG A-fib RVR rate 139 with PVCs, nonspecific ST wave abnormality. She denies shortness of breath, edema, dizziness, fall. Plan to admit for A-fib RVR, elevated troponin, NSTEMI, laboratory evaluation troponin 1651, BNP 1158, CBC CMP unremarkable Allergies No Known Allergies Allergy (Verified 12/11/19 22:19) Home Medications: Aspirin 1 tab PO DAILY 12/11/19 Metoprolol Tartrate 1 tab PO SEECOM 12/11/19 Metoprolol Tartrate [Lopressor*] 1 tab PO BEDTIME 12/11/19 Simvastatin 20 mg PO BEDTIME 12/11/19 hydroCHLOROthiazide [Hydrochlorothiazide] 1 tab PO DAILY 12/11/19 - Past Medical/Surgical History Diabetic: No -: HTN -: Osteoarthritis/Bursitis of the Hip and Shoulder -: Obesity -: Migraines -: Partial Hysterectomy -: Cyst to the auricular area removed. 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 - Social History Alcohol use: Yes CD- Drugs: No Caffeine use: Yes Review of Systems per HPI Physical Examination - Physical Exam General: Alert, In no apparent distress, Oriented x3 HEENT: Atraumatic, Normocephalic Neck: Supple, 2+ carotid pulse no bruit Respiratory: Clear to auscultation bilaterally, Normal air movement Cardiovascular: No edema, Normal pulses, Irregular heart rate/rhythm Capillary refill: <2 Seconds Gastrointestinal: Normal bowel sounds, Soft and benign Musculoskeletal: No clubbing, No swelling Neurological: Normal speech, Normal strength at 5/5 x4 extr - Studies Laboratory Data (last 24 hrs) 08/17/23 08/17/23 08/17/23 10:55 10:55 10:55 WBC 6.00 Hgb 14.0 Hct 41.1 Plt Count 294 PT 12.3 INR 1.12 Sodium 140 Potassium 3.7 BUN 11 Creatinine 0.88 Glucose 100 Magnesium 2.1 Total Bilirubin 0.5 AST 25 ALT 37 Alkaline Phosphatase 55 Lipase 24 Assessment and Plan - Plan Assessment plan A-fib Chest pain likely secondary to uncontrolled A-fib NSTEMI elevated troponin Cardiology consult start sotalol 80 twice daily, Lovenox 1 mg/kg per Dr. Felipe EKG A-fib RVR rate 139 with PVCs, nonspecific ST wave abnormality. IV Lopressor every 6 as needed heart rate greater than 120, Lasix 40 mg p.o. twice daily elevated BNP, morphine as needed pain chest pain is substernal 3 out of 10 described as chest pressure, nonradiating reports palpitations symptoms worse today evaluation troponin 1651, BNP 1158, CBC CMP unremarkable Trend troponin, BMP Essential hypertension hyperlipidemia Metoprolol 25 twice daily, lisinopril 25 daily, depression seasonal Migraines Resume appropriate home meds Full code DVT Lovenox 1 mg/kg Diet cardiac Discharge Plan: Home Plan to discharge in: 48 Hours - Advance Directives Does patient have a Living Will: No Does patient have a Durable POA for Healthcare: No - Code Status/Comfort Care Code Status: Full Code Critical Care: No Time Spent Managing Pts Care (In Minutes): 55
[2023-08-17 12:15] LABS: Specific Gravity < 1.005 (1.005-1.030); Urine Bacteria <20 /HPF (<20); Urine Bilirubin NEGATIVE (Negative); Urine Blood Negative (Negative); Urine Clarity Extremely Turbid (Clear); Urine Color Colorless (Yellow); Urine Glucose NEGATIVE (Negative); Urine Protein NEGATIVE (Negative); Urine RBC <5 /HPF (None Seen); Urine Urobilinogen Normal (Normal)
[2023-08-17] MEDS: FUROSEMIDE 40 MG/4 ML VIAL IV SCH ×2 (12:46→16:13)
[2023-08-17] MEDS ORDERED: ACETAMINOPHEN 500 MG TAB PO PRN (14:52)
[2023-08-17] MEDS ORDERED: MORPHINE 2 MG/ML SYR IV PRN (14:52)
[2023-08-17] MEDS ORDERED: ALPRAZOLAM 0.25 MG TABLET PO PRN (14:52)
[2023-08-17] MEDS ORDERED: ONDANSETRON 4 MG/2 ML VIAL IV PRN (14:52)
[2023-08-17 15:02] VITALS: BMI 35.5
[2023-08-17] MEDS: METOPROLOL TAR 25 MG TAB PO SCH ×2 (17:02→17:03)
[2023-08-17] MEDS: SOTALOL HCL 80 MG TAB PO SCH (17:05)
[2023-08-17] MEDS: ATORVASTATIN 10 MG TAB PO SCH (20:40)
[2023-08-17] MEDS: ENOXAPARIN 100 MG/ML SYR SQ SCH (22:09)
[2023-08-18] MEDS: METOPROLOL TARTRATE 5 MG/5 ML INJ IV PRN ×2 (01:04→08:53)
[2023-08-18] MEDS: SOTALOL HCL 80 MG TAB PO SCH (06:17)
[2023-08-18 06:21] LABS: Absolute Lymphocytes (CBC) 1.9 K/uL (0.7-4.9); Hematocrit 40.3 % (36.0-45.0); Lymphocytes % 40.8 % (15.3-44.8); MCV 87.7 fL (80-100); MPV 7.6 fL (7.6-11.3); Platelets 247 thou/uL (152-406); RBC Red Blood Cell Count 4.59 M/uL (3.86-4.86)
[2023-08-18 06:40] LABS: Magnesium 2.2 mg/dL (1.6-2.4); Potassium 3.5 mEq/L (3.5-5.1)
--- NOTE | 2023-08-18 08:47 | P.PN ---
Subjective Date of Service: 08/18/23 Chief Complaint: A-fib RVR Asymptomatic, no reported chest pain, palpitations, shortness of breath - Physical Exam General: Alert, In no apparent distress, Oriented x3 HEENT: Atraumatic, Normocephalic Neck: Supple, 2+ carotid pulse no bruit Respiratory: Clear to auscultation bilaterally, Normal air movement Cardiovascular: No edema, Normal pulses, Irregular heart rate/rhythm Capillary refill: <2 Seconds Gastrointestinal: Normal bowel sounds, Soft and benign Musculoskeletal: No clubbing, No swelling Neurological: Normal speech, Normal strength at 5/5 x4 extr Review of Systems per HPI Physical Examination - Vital Signs Temperature: 97.0 F Blood Pressure: 115/74 Pulse: 80 Respirations: 16 Pulse Ox (%): 95 - Studies Laboratory Data (last 24 hrs) 08/17/23 08/17/23 08/17/23 10:55 10:55 10:55 WBC 6.00 Hgb 14.0 Hct 41.1 Plt Count 294 PT 12.3 INR 1.12 Sodium 140 Potassium 3.7 BUN 11 Creatinine 0.88 Glucose 100 Magnesium 2.1 Total Bilirubin 0.5 AST 25 ALT 37 Alkaline Phosphatase 55 Lipase 24 Assessment And Plan - Plan Assessment plan A-fib Chest pain likely secondary to uncontrolled A-fib NSTEMI elevated troponin A-fib uncontrolled Cardiology consult start sotalol 80 twice daily, Lovenox 1 mg/kg per Dr. Felipe EKG A-fib RVR rate 139 with PVCs, nonspecific ST wave abnormality. IV Lopressor every 6 as needed heart rate greater than 120, Lasix 40 mg p.o. twice daily elevated BNP, morphine as needed pain chest pain is substernal 3 out of 10 described as chest pressure, nonradiating reports palpitations symptoms worse today evaluation troponin 1651, 917, treated with Lovenox 1 mg/kg BNP 1158,2341 treat with Lasix CBC CMP unremarkable Trend troponin, BnP 08/18 A-fib 142 IV Lopressor 5 mg IV prn, amiodarone drip started with bolus Cardioversion planned Saturday 08/[address] Felipe will keep n.p.o. after midnight 08/18 afib/flutter rate 131 on amiodarone drip Essential hypertension hyperlipidemia Metoprolol 25 twice daily, lisinopril 25 daily, telemetry depression seasonal Migraines Resume appropriate home meds Full code DVT Lovenox 1 mg/kg Diet cardiac Discharge Plan: Home - Code Status/Comfort Care Code Status: Full Code Critical Care: No Time Spent Managing PTS Care (In Minutes): 35
[2023-08-18] MEDS: ENOXAPARIN 100 MG/ML SYR SQ SCH ×2 (08:54→20:24)
[2023-08-18] MEDS: FUROSEMIDE 40 MG/4 ML VIAL IV SCH (08:54)
[2023-08-18] MEDS: ASPIRIN 81 MG CHEWABLE TABLET PO SCH (08:54)
[2023-08-18] MEDS ORDERED: METOPROLOL TARTRATE 5 MG/5 ML INJ IV STA (08:57)
[2023-08-18] MEDS ORDERED: HOME MED 1 EA UNK (Semaglutide [Ozempic] 1 MG/0.75 ML Pen.Injctr) SQ SCH (09:00)
[2023-08-18] MEDS ORDERED: [UNRECOGNIZED DRUG - REMARK] PO SCH (09:00)
[2023-08-18] MEDS ORDERED: hydroCHLOROthiazide 12.5 MG CAP PO SCH (09:00)
[2023-08-18] MEDS ORDERED: LOSARTAN POTASSIUM 50 MG TABLET PO SCH (09:00)
[2023-08-18] MEDS ORDERED: POTASSIUM CL SA 10 MEQ TAB PO ONE (09:00)
[2023-08-18] MEDS ORDERED: METOPROLOL TAR 50 MG TAB PO SCH (09:00)
[2023-08-18] MEDS: PANTOPRAZOLE 40MG TABLET PO SCH (09:55)
[2023-08-18] MEDS: AMITRIPTYLINE 25 MG TAB PO SCH (09:55)
[2023-08-18] MEDS ORDERED: AMIODARONE HCL 75 MG in D5W 100 ML IV SCH (14:00)
[2023-08-18] MEDS ORDERED: AMIODARONE HCL 900 MG in Dextrose 5%-Water 482 ML IV SCH (20:00)
[2023-08-18] MEDS ORDERED: AMIODARONE HCL 75 MG in D5W 100 ML IV ONE (20:00)
[2023-08-18] MEDS: ATORVASTATIN 10 MG TAB PO SCH (20:24)
[2023-08-18] MEDS: NA CHLORIDE 0.9% 1,000 ML IV SCH (23:36)
[2023-08-19 07:14] LABS: Absolute Lymphocytes (CBC) 1.7 K/uL (0.7-4.9); Hematocrit 39.3 % (36.0-45.0); Lymphocytes % 37.1 % (15.3-44.8); MCV 87.8 fL (80-100); MPV 7.9 fL (7.6-11.3); Platelets 242 thou/uL (152-406); RBC Red Blood Cell Count 4.48 M/uL (3.86-4.86)
[2023-08-19 07:30] LABS: Magnesium 2.2 mg/dL (1.6-2.4); Potassium 3.5 mEq/L (3.5-5.1)
[2023-08-19 07:31] LABS: Troponin High Sensitivity 219.2 pg/mL (<58.9)
[2023-08-19] MEDS ORDERED: METOPROLOL TARTRATE 5 MG/5 ML INJ IV STA (08:02)
[2023-08-19] MEDS: ASPIRIN 81 MG CHEWABLE TABLET PO SCH (09:50)
[2023-08-19] MEDS: PANTOPRAZOLE 40MG TABLET PO SCH (09:51)
[2023-08-19] MEDS: ENOXAPARIN 100 MG/ML SYR SQ SCH ×2 (09:51→21:30)
[2023-08-19] MEDS: FUROSEMIDE 40 MG/4 ML VIAL IV SCH ×2 (09:51→17:57)
[2023-08-19] MEDS: AMITRIPTYLINE 25 MG TAB PO SCH (09:52)
[2023-08-19] MEDS: METOPROLOL TARTRATE 5 MG/5 ML INJ IV PRN (09:54)
--- NOTE | 2023-08-19 11:13 | P.PN ---
Subjective Date of Service: 08/19/23 Chief Complaint: A-fib RVR Subjective: New changes Review of Systems General: Weakness Eyes: Unremarkable ENT: Unremarkable Respiratory: Unremarkable Cardiovascular: Unremarkable Gastrointestinal: Unremarkable Genitourinary: Unremarkable Musculoskeletal: Unremarkable Integumentary: Unremarkable Neurological: Weakness Lymphatics: Unremarkable Physical Examination - Vital Signs Temperature: 97.1 F Blood Pressure: 104/76 Pulse: 124 Respirations: 18 Pulse Ox (%): 97 - Physical Exam General: Alert, Oriented x3 HEENT: Atraumatic, PERRLA, EOMI Neck: Supple, JVD not distended Respiratory: Clear to auscultation bilaterally, Normal air movement Cardiovascular: No edema, Normal S1 S2, Irregular heart rate/rhythm Capillary refill: <2 Seconds Gastrointestinal: Normal bowel sounds, Soft and benign, No tenderness Musculoskeletal: No clubbing, No swelling, No tenderness Integumentary: No rashes, No tenderness/swelling Neurological: Normal speech, Normal tone, Normal affect Lymphatics: No axilla or inguinal lymphadenopathy Assessment And Plan - Plan Interval history. 08/19/2023 Patient currently denies any chest pain. Heart rate was noted to be elevated. Patient medicated with metoprolol IV. Patient still in A-fib but heart rate in the 90s after IV medication. Continue IV amiodarone. Wine Consultant on board. Patient complains of generalized weakness earlier in the day. Symptom improving. Further management per wrapper stemmer hand. DVT prophylaxis with Lovenox subQ. Continue supportive care. Chest pain likely secondary to uncontrolled A-fib NSTEMI elevated troponin A-fib uncontrolled Cardiology consult start sotalol 80 twice daily, Lovenox 1 mg/kg per Dr. Felipe EKG A-fib RVR rate 139 with PVCs, nonspecific ST wave abnormality. IV Lopressor every 6 as needed heart rate greater than 120, Lasix 40 mg p.o. twice daily elevated BNP, morphine as needed pain chest pain is substernal 3 out of 10 described as chest pressure, nonradiating reports palpitations symptoms worse today evaluation troponin 1651, 917, treated with Lovenox 1 mg/kg BNP 1158,2341 treat with Lasix CBC CMP unremarkable Trend troponin, BnP 08/18 A-fib 142 IV Lopressor 5 mg IV prn, amiodarone drip started with bolus Cardioversion planned Saturday 08/[address] Felipe will keep n.p.o. after midnight 08/18 afib/flutter rate 131 on amiodarone drip Essential hypertension hyperlipidemia Metoprolol 25 twice daily, lisinopril 25 daily, telemetry depression seasonal Migraines Resume appropriate home meds Discharge Plan: Home Plan to discharge in: 48 Hours - Code Status/Comfort Care Code Status Assessed: Yes Code Status: Full Code Physician Review: Patient Assessed, Agree with Above Assessment and Plan Critical Care: No
--- NOTE | 2023-08-19 16:58 | EKG ---
Test Date: 2023-08-18 Test Time: 13:53:23 Dinkey Locomotive Engineer: NEIL MEASUREMENT RESULTS: Intervals: Rate: 128 NC: QRSD: 84 QT: 376 QTc: 548 [place]: P: NC: QRS: 2 T: 138 INTERPRETIVE STATEMENTS: Atrial fibrillation with rapid ventricular response Nonspecific T wave abnormality, probably digitalis effect Abnormal ECG Compared to ECG 08/17/2023 10:38:33 Ventricular premature complex(es) no longer present T-wave abnormality still present Electronically Signed On 08-19-23 16:55:48 PIGGERY WORKER by Chente Felipe
--- NOTE | 2023-08-19 17:05 | EKG ---
Test Date: 2023-08-17 Test Time: 10:38:33 Electrical Lineman: DIANE MEASUREMENT RESULTS: Intervals: Rate: 139 PA: QRSD: 88 QT: 308 QTc: 468 [place]: P: PA: QRS: 40 T: 162 INTERPRETIVE STATEMENTS: Atrial fibrillation with premature ventricular or aberrantly conducted complexes Low voltage QRS Nonspecific T wave abnormality, probably digitalis effect Abnormal ECG Compared to ECG 12/11/2019 16:58:45 Ventricular premature complex(es) now present Low QRS voltage now present T-wave abnormality now present Sinus rhythm no longer present Myocardial infarct finding no longer present Electronically Signed On 08-19-23 16:58:51 FIELD PRODUCER by Chente Felipe
--- NOTE | 2023-08-19 17:38 | CON ---
Date of Consultation: 08/19/2023 Reason For Consultation: Atrial fibrillation with rapid ventricular response. History Of Present Illness: 58-year-old female, past medical history of atrial fibrillation, hyperte nsion, and dyslipidemia, presented to the emergency room with chest pain and palpitations. The chest pain was left-sided, no radiation and sharp in nature and was found to have atrial fibrillation with rapid ventricular response and started to feeling better. No further chest pain at the present time . Past Medical History: As outlined above in the HPI. Medications: Refer to reconciliation sheet for detailed list. Allergies: NO KNOWN DRUG ALLERGIES. Family History: No premature coronary artery disease or cancer. Social History: Does not smoke or drink. Does not use any drugs. Review of Systems: All systems reviewed and they were negative except as mentioned in the HPI. Physical Examination: Vital Signs: Reviewed. Head and Neck: Pupils are equal, reactive to light. Intact eye movements. No JVD. No cervical lym phadenopathy. Neck is supple. Thyroid is not enlarged. Lungs: Clear to auscultation bilaterally. No rhonchi, wheezing, or crackles. No accessory muscle u se. Heart: Irregularly irregular. No extra sounds. Abdomen: Soft, nontender. Bowel sounds positive. No organomegaly. No masses or hernia. No rigidi ty or rebound. Extremities: No edema, clubbing, or cyanosis. Intact pulses. Skin: No rash or nodule. Neurologic: Alert, awake, oriented x3. No acute focal deficits appreciated. Investigations: Troponin peaked at 1651 down to 119, BUN is 10, creatinine 0.78 and hemoglobin 13.4. Assessment And Recommendations: 1.Atrial fibrillation with rapid ventricular response. Discontinue amiodarone. Start her on sotalo l 80 mg by mouth twice a day and keep monitoring on telemetry and continue Lovenox for now. 2.Dcs-WG-ppdgivfrc myocardial infarction. Continue Lovenox and baby aspirin. Keep n.p.o. past midn ight. Plan for coronary angiogram tomorrow. 3.Congestive heart failure with exacerbation. Obtain an echo and continue Lasix. 4.Dyslipidemia. Continue statin. SR/MODL Voice ID: [id number] Report ID: [id number]
[2023-08-19] MEDS: SOTALOL HCL 80 MG TAB PO SCH (17:57)
[2023-08-19] MEDS: NA CHLORIDE 0.9% 1,000 ML IV SCH (18:58)
[2023-08-19] MEDS ORDERED: AMIODARONE HCL 900 MG in Dextrose 5%-Water 482 ML IV SCH (20:00)
[2023-08-19] MEDS: ATORVASTATIN 10 MG TAB PO SCH (21:30)
[2023-08-20] MEDS: ASPIRIN 81 MG CHEWABLE TABLET PO SCH (06:07)
[2023-08-20] MEDS: SOTALOL HCL 80 MG TAB PO SCH (06:07)
[2023-08-20 06:49] LABS: Absolute Lymphocytes (CBC) 1.9 K/uL (0.7-4.9); Hematocrit 41.4 % (36.0-45.0); Lymphocytes % 36.8 % (15.3-44.8); MCV 87.8 fL (80-100); MPV 8.2 fL (7.6-11.3); Platelets 288 thou/uL (152-406); RBC Red Blood Cell Count 4.71 M/uL (3.86-4.86)
[2023-08-20 06:52] LABS: Potassium 3.5 mEq/L (3.5-5.1); Troponin High Sensitivity 58.7 pg/mL (<58.9)
[2023-08-20] MEDS: ENOXAPARIN 100 MG/ML SYR SQ SCH (09:00)
[2023-08-20] MEDS: PANTOPRAZOLE 40MG TABLET PO SCH (09:07)
[2023-08-20] MEDS: AMITRIPTYLINE 25 MG TAB PO SCH (09:07)
[2023-08-20] MEDS: FUROSEMIDE 40 MG/4 ML VIAL IV SCH (09:07)
[2023-08-20] MEDS ORDERED: LIDOCAINE 1% 20 ML MDV ONE (10:52)
[2023-08-20] MEDS ORDERED: HEPA 1000U/500MLS 2,000 UNIT/1,000 ML BAG IV ONE (10:52)
[2023-08-20] MEDS ORDERED: FENTANYL CITR 100 MCG/2 ML ONE (11:16)
[2023-08-20] MEDS ORDERED: VERAPAMIL HCL 10 MG/4 ML VIAL IV ONE (11:16)
[2023-08-20] MEDS ORDERED: HEPARIN 5000 UNIT/ML 1 ML VIAL ONE (11:17)
[2023-08-20] MEDS ORDERED: MIDAZOLAM HCL 2 MG/2 ML INJ ONE (11:17)
[2023-08-20] MEDS ORDERED: HEPARIN 10,000 UNIT/10 ML VIAL IV ONE (11:17)
[2023-08-20] MEDS ORDERED: ATROPINE SULF 1 MG/10 ML SYR IV ONE (11:17)
[2023-08-20] MEDS ORDERED: NA CHLORIDE 0.9% 500 ML ONE (11:18)
[2023-08-20] MEDS ORDERED: TICAGRELOR 90 MG TABLET PO ONE (11:19)
[2023-08-20] MEDS ORDERED: CLOPIDOGREL 75 MG TABLET ONE (11:20)
--- NOTE | 2023-08-20 12:23 | P.PN ---
Subjective Date of Service: 08/20/23 Chief Complaint: A-fib RVR Subjective: Improving Patient reports improvement in generalized weakness. Patient reports some anxiety. Review of Systems General: Weakness Eyes: Unremarkable ENT: Unremarkable Respiratory: Unremarkable Cardiovascular: Unremarkable Gastrointestinal: Unremarkable Genitourinary: Unremarkable Musculoskeletal: Unremarkable Integumentary: Unremarkable Neurological: Weakness Lymphatics: Unremarkable Physical Examination - Vital Signs Temperature: 97.0 F Blood Pressure: 112/76 Pulse: 77 Respirations: 16 Pulse Ox (%): 95 - Physical Exam General: Alert, In no apparent distress, Oriented x3, Cooperative HEENT: Atraumatic, PERRLA, EOMI Neck: Supple, JVD not distended Respiratory: Clear to auscultation bilaterally, Normal air movement Cardiovascular: Normal S1 S2, Irregular heart rate/rhythm Capillary refill: <2 Seconds Gastrointestinal: Normal bowel sounds, Non-distended, No tenderness Musculoskeletal: No clubbing, No tenderness Integumentary: No rashes Neurological: Normal speech, Normal tone, Normal affect Lymphatics: No axilla or inguinal lymphadenopathy Assessment And Plan - Plan Interval history. 08/20/2023. Patient seen with family at bedside. Echocardiogram pending. Patient started on sotalol by distributed generation project manager and distributed generation project manager also DC'd amiodarone. Patient tolerating medication. Patient n.p.o. [employer] plans for a left heart cath today. Patient reports improvement in generalized weakness. Patient placed on Ativan as needed for anxiety. Further management per distributed generation project manager. Continue supportive care. 08/19/2023 Patient currently denies any chest pain. Heart rate was noted to be elevated. Patient medicated with metoprolol IV. Patient still in A-fib but heart rate in the 90s after IV medication. Continue IV amiodarone. [employer] on board. Patient complains of generalized weakness earlier in the day. Symptom improving. Further management per distributed generation project manager. Continue amitriptyline for anxiety. DVT prophylaxis with Lovenox subQ. Continue supportive care. Chest pain likely secondary to uncontrolled A-fib NSTEMI elevated troponin A-fib uncontrolled Cardiology consult start sotalol 80 twice daily, Lovenox 1 mg/kg per Dr. Felipe EKG A-fib RVR rate 139 with PVCs, nonspecific ST wave abnormality. IV Lopressor every 6 as needed heart rate greater than 120, Lasix 40 mg p.o. twice daily elevated BNP, morphine as needed pain chest pain is substernal 3 out of 10 described as chest pressure, nonradiating reports palpitations symptoms worse today evaluation troponin 1651, 917, treated with Lovenox 1 mg/kg BNP 1158,2341 treat with Lasix CBC CMP unremarkable Trend troponin, BnP 08/18 A-fib 142 IV Lopressor 5 mg IV prn, amiodarone drip started with bolus Cardioversion planned Saturday 08/[address] Felipe will keep n.p.o. after midnight 08/18 afib/flutter rate 131 on amiodarone drip Essential hypertension hyperlipidemia Metoprolol 25 twice daily, lisinopril 25 daily, telemetry depression seasonal Migraines Resume appropriate home meds . Discharge Plan: Home Plan to discharge in: 48 Hours Physician Review: Patient Assessed, Agree with Above Assessment and Plan Critical Care: No
[2023-08-20] MEDS ORDERED: LORazepam 2 MG/ML VIAL IV PRN (12:24)
--- NOTE | 2023-08-20 12:51 | PN ---
Date of Progress Note: 08/20/2023 Subjective: Seen at bedside. No further chest pain. Heart appears to be in sinus rhythm. Review of Systems: No chest pain, shortness of breath, orthopnea, or cough. No nausea, vomiting, or diarrhea. All othe r systems reviewed and are negative. Physical Examination: Vital Signs: Reviewed. Head and Neck: Pupils are equal, reactive to light. Intact eye movements. No JVD. No cervical lym phadenopathy. Neck is supple. Thyroid is not enlarged. Lungs: Clear to auscultation bilaterally. No rhonchi, rales, or crackles. No accessory muscle use. Heart: Regular rate and rhythm. No extra sounds. Abdomen: Soft, nontender. Bowel sounds positive. No organomegaly. No masses or hernia. No rigidi ty or rebound. Extremities: No edema, clubbing, or cyanosis. Intact pulses. Skin: No rash or nodule. Neurologic: Alert, awake, oriented x3. No focal deficits appreciated. Investigations: Labs reviewed. Assessment And Recommendations: 1.Non-ST elevation myocardial infarction. Troponin was elevated at 1600 range. Coronary angiogram was done and she has no coronary artery disease. This is a demand ischemia. No further action is ne eded. Needs atrial fibrillation control. 2.Atrial fibrillation with rapid ventricular response. She converted to sinus rhythm. Continue sot alol at 80 mg twice a day. After the third dose, EKG to be checked. If the QTc interval is normal, the patient can be released on that as well as on Eliquis 5 mg twice a day and follow up with me in the office in 1 week. 3.Hypertension, better controlled. SR/MODL Voice ID: [id number] Report ID: [id number]
--- NOTE | 2023-08-20 13:35 | OP ---
Date of Procedure: 08/20/2023 Surgeon: ROSARIO CUNNINGHAM Procedures Performed: 1.Selective coronary angiogram. 2.Left heart catheterization. Indication: Iyg-HG-hlwtysckl myocardial infarction. Access: Right radial artery 6-Persian closed with TR band. Complications: None. Bleeding: Less than 20 mL. Anesthesia: Total sedation time was 30 minutes. Description Of Procedure: After risks, benefits, and alternatives were explained, patient agreed to procedure, and signed informed consent. Patient was brought into the cardiac catheterization laborat ory, prepped and draped in the usual sterile fashion. Then, I accessed right radial artery using ped iatric micropuncture kit, placed a 6-Persian Slender sheath, took 5-Persian [place] 4.0 catheter into aor tic root, engaged left main and took standard views and in the RCA, took standard views and the christel ter was pushed over the wire into the LV, measured the LVEDP. Pullback did record any gradient. The n I removed the catheter and the sheath, placed TR band with good hemostasis. Findings: 1.Left main; large and normal. 2.LAD; large and normal. Normal diagonal branches. 3.Left circumflex; large and codominant and normal. Normal OM branches. 4.RCA; large and codominant and normal, and normal PDA and PLB. 5.Normal LVEDP at 6 mmHg. Conclusion: 1.Normal coronary arteries. The elevated troponin is demand ischemia. 2.Normal LVEDP. Recommendations: Medical management and AFib control. SR/MODL Voice ID: [id number] Report ID: [id number]
[2023-08-20 14:16] VITALS: O2SAT 98
[2023-08-20 17:25] VITALS: BP 113/67; TEMP 97.4
--- NOTE | 2023-08-21 07:12 | ECHO ---
HEIGHT: 5 ft 7 in WEIGHT: 227 lb 0 oz DATE OF STUDY: 08/20/[address]: Janice Cronin ULTRA SOUND TECHNICIANMacario 2-DIMENSIONAL: YES M.MODE: YES DOPPLER: YES COLOR FLOW: YES TDS: PORTABLE: YES DEFINITY: BUBBLE STUDY: DIAGNOSIS: ELEVATED BNP, ELEVATED TROPONIN CARDIAC HISTORY: CATHERIZATION: NO SURGERY: NO PROSTHETIC VALVE: NO PACEMAKER: NO MEASUREMENTS (cm) DIASTOLIC (NORMALS) SYSTOLIC (NORMALS) IVSd 1.1 (0.6-1.2) LA Diam 3.2 (1.9-4.0) LVEF 64% LVIDd 4.0 (3.5-5.7) LVIDs 2.6 (2.0-3.5) %FS 34% LVPWd 1.2 (0.6-1.2) Ao Diam 2.8 (2.0-3.7) 2 DIMENSIONAL ASSESSMENT: RIGHT ATRIUM: NORMAL LEFT ATRIUM: NORMAL RIGHT VENTRICLE: NORMAL LEFT VENTRICLE: NORMAL TRICUSPID VALVE: NORMAL MITRAL VALVE: NORMAL PULMONIC VALVE: NORMAL AORTIC VALVE: NORMAL PERICARDIAL EFFUSION: NONE AORTIC ROOT: NORMAL LEFT VENTRICULAR WALL MOTION: NORMAL DOPPLER/COLOR FLOW: NORMAL COMMENTS: 1. NORMAL LEFT VENTRICULAR EJECTION FRACTION 60-65% 2. NORMAL WALL MOTION 3. POOR WINDOWS TECHNOLOGIST: RAMAN REBOLLAR
== END 2023-08-20 17:00 | disposition home or self-care (01) | DRG 282 ==
LOC: ER 10:20 → 4TH 13:42
PROVIDERS: ADMIT Hospitalist; ATTEND Hospitalist
PROC: 4A023N7 Measurement of Cardiac Sampling and Pressure, Left Heart, Percutaneous Approach (ICD-10-PCS; principal; 2023-08-20)
PROC: B2111ZZ Fluoroscopy of Multiple Coronary Arteries using Low Osmolar Contrast (ICD-10-PCS; 2023-08-20)
DX: I48.19 Other persistent atrial fibrillation (principal); I21.A1 Myocardial infarction type 2; I48.92 Unspecified atrial flutter; I49.3 Ventricular premature depolarization; E78.5 Hyperlipidemia, unspecified; F32.A Depression, unspecified; J30.2 Other seasonal allergic rhinitis; I11.0 Hypertensive heart disease with heart failure; I50.9 Heart failure, unspecified; F41.9 Anxiety disorder, unspecified; G43.909 Migraine, unspecified, not intractable, without status migrainosus; Z79.82 Long term (current) use of aspirin; Z90.711 Acquired absence of uterus with remaining cervical stump; Z79.899 Other long term (current) drug therapy
CPT/HCPCS: 36415; 71045; 76937; 80048; 80076; 81001; 82550; 83690; 83735; 83880; 84443; 84484; 85025; 85610; 93005; 93306; 93458; 93970; 96374; 96375; 99152; 99153; 99284; C1893; J0282; J0461; J1160; J1644; J1650; J1940; J2001; J2250; J3010; J3475; J7030; J7040; J7060; Q9966

== ENCOUNTER 2024-07-19 19:26 | Emergency (ER) | payer BC, OTHER ==
[2024-07-19] MEDS ORDERED: IBUPROFEN 200 MG TAB PO ONE (19:40)
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
--- NOTE | 2024-07-19 20:17 | RAD REPORT ---
Exam:Shoulder Left 2+ Views HISTORY: Left shoulder pain FINDINGS: No fracture or acute dislocation seen Chronic widening of the AC joint. Chronic elevation distal left clavicle. It is uncertain if this is secondary to prior surgery or old trauma.
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
[2024-07-19 21:20] VITALS: TEMP 97.2
[2024-07-19 21:22] VITALS: BP 151/91; O2SAT 97
== END 2024-07-19 20:40 | disposition home or self-care (01) ==
LOC: ER 19:26
DX: S46.912A Strain of unspecified muscle, fascia and tendon at shoulder and upper arm level, left arm, initial encounter (principal); S16.1XXA Strain of muscle, fascia and tendon at neck level, initial encounter; V49.49XA Driver injured in collision with other motor vehicles in traffic accident, initial encounter
CPT/HCPCS: 70450; 71250; 72125; 74176; 99284